=== PATIENT | female | born 2000 | race Caucasian/White ===

== ENCOUNTER 2023-10-12 18:55 | Emergency (ER) | payer OTHER, SELFPAY ==
[2023-10-12 19:07] VITALS: BP 128/92
[2023-10-12 19:41] LABS: COVID-19 Antigen Negative (Negative)
--- NOTE | 2023-10-12 22:26 | ED.GENMED ---
History of Present Illness
<MATT Jiang - Last Filed: 10/13/23 01:05>
General
Chief Complaint: Cold/Flu/URI Symptoms
Source: patient and family
Exam Limitations: none
Time Seen by Provider: 10/12/23 22:26
Travel History
Have you traveled to any high risk areas for coronavirus over the past 14 days?: No
Have you had any contact with someone who has COVID-19?: No
Do you have any symptoms of coronavirus? Fever > 100 degrees, chills, cough, shortness of breath, sore throat, loss of taste or smell, muscle aches, or headache?: No
History of Present Illness
History of Present Illness:
22 year old female with no significant past medical hx brought in by mother for cough that began 2 weeks ago. Pt states she initially had sore throat 2 weeks ago and after 3 days she developed a cough. She made a telehealth appointment and was
prescribed abx for possible strep throat which she finished 5 days ago. Pt's cough persisted and went to urgent care 1 week ago. She was told her symptoms were due to a viral etiology and recommended to take Robitussin. Today she presents with
persistent cough. However, she no longer has sore throat. States her coughs are severe and productive. She has mid sternal chest pain and tightness with SOB. States she gags and at times vomits due to the severity of her cough. Pt has been having on
and off fevers for the past 2 weeks, Tmax of 102. Her temperature at home today was 99. She has body aches and occasional night sweats. She also reports rhinorrhea, nasal congestion, and ear fullness. States she feels likes she is 'under water'. She
also reports loose stools and left sided abdominal pain. Pain is nonradiating. She also uses afrin and nasal spray.
No hematemesis, hematochezia, constipation, diarrhea, or urinary complaints. No sick contacts. No recent travel.
Past History
<MATT Jiang - Last Filed: 10/13/23 01:05>
Past History
ED Past Medical History: None
Review of Systems
<Aliza Mix [facility] - Last Filed: 10/13/23 01:05>
Review of Systems
All Other Systems: ROS reviewed and negative except as documented in HPI and ROS
Constitutional: Reports fever, fatigue and night sweats
EENT: Reports sore throat and runny nose
Respiratory: Reports cough and trouble breathing
Cardiac: Reports chest pain
ABD/GI: Reports vomiting, pain and other (loose stools)
: Reports no symptoms
Musculoskeletal: Reports muscle pain
Skin: Reports no symptoms
Neurological: Reports no symptoms
Phy Exam
<Aliza Mix [facility] - Last Filed: 10/13/23 01:05>
General Physical Exam
General Presentation: well appearing and no apparent distress
General age: appears stated age
General Skin: warm
General Habitus: normal
General Mental: alert
General Hydration: appears well hydrated
ENT Exam
ENT Exam: neck supple, lymphnodes (No lymphadenopathy.) and TM's abnormal (bilateral TM with serous fluid)
Additional ENT: Alicia boggy nasal turbinates. No tonsillar enlargements or exudates.
Cardiovascular Exam
Cardiovascular Exam: regular rate/rhythm, no edema and no murmur
Pulmonary Exam
Pulmonary Exam: lungs clear, no respiratory distress, no rales, no crackles, no rhonchi and no wheezing
Cough: hacking cough
Gastrointestinal Exam
Gastrointestinal Exam: soft, no organomegaly and non distended
Palpation: left upper quadrant: Mild tenderness and left lower quadrant: Mild tenderness
Neurological Exam
Neurological Exam: alert and oriented x3
Skin Exam
Skin Exam: normal color and warm/dry
Course
<Aliza Mix [facility] - Last Filed: 10/13/23 01:05>
Orders/Labs/Results
Orders:
Orders
10/12/23 19:08
Chest [CR Chest - 2 Views ] Urgent
Comment:
Reason For Exam: WILLIAM
10/12/23 19:12
COVID-19 Antigen Urgent
Source: Nasal Swab
Influenza A+B Rapid Molecular Urgent
STAN Source: Nasal Swab
Specimen Description:
10/12/23 23:26
Doxycycline [Vibramycin] 100 mg PO NOW STA
10/12/23 23:51
Doxycycline [Vibramycin] 100 mg PO NOW STA
Vital Signs
Initial and Last Documented VS:
Initial Vital Signs
Temp Pulse Resp BP Pulse Ox
99.5 F 99 22 128/92 96
10/12/23 19:07 10/12/23 19:07 10/12/23 19:07 10/12/23 19:07 10/12/23 19:07
Last Documented Vital Signs
Temp Pulse Resp BP Pulse Ox
99.2 F 88 19 122/82 98
10/13/23 00:28 10/13/23 00:28 10/13/23 00:28 10/13/23 00:28 10/13/23 00:28
<Darrell Hidalgo, DO - Last Filed: 10/12/23 23:52>
Orders/Labs/Results
Orders:
Orders
10/12/23 19:08
Chest [CR Chest - 2 Views ] Urgent
Comment:
Reason For Exam: WILLIAM
10/12/23 19:12
COVID-19 Antigen Urgent
Source: Nasal Swab
Influenza A+B Rapid Molecular Urgent
STAN Source: Nasal Swab
Specimen Description:
10/12/23 23:26
Doxycycline [Vibramycin] 100 mg PO NOW STA
10/12/23 23:51
Doxycycline [Vibramycin] 100 mg PO NOW STA
Vital Signs
Initial and Last Documented VS:
Initial Vital Signs
Temp Pulse Resp BP Pulse Ox
99.5 F 99 22 128/92 96
10/12/23 19:07 10/12/23 19:07 10/12/23 19:07 10/12/23 19:07 10/12/23 19:07
Last Documented Vital Signs
Temp Pulse Resp BP Pulse Ox
99.2 F 88 19 122/82 98
10/13/23 00:28 10/13/23 00:28 10/13/23 00:28 10/13/23 00:28 10/13/23 00:28
<MATT Jiang - Last Filed: 10/13/23 01:05>
*Critical Care Note
Total Time (30-74mins, 75-104mins- exclusive of procedures): Not Applicable
ED Attending Note
<MATT Jiang - Last Filed: 10/13/23 01:05>
-
Portions of this chart may have been created with voice recognition software.� Occasional wrong word or��sound alike� substitutions may have occurred due to the inherent limitations of voice recognition software.
<Darrell Hidalgo DO - Last Filed: 10/12/23 23:52>
ED Attending Note
Patient seen and examined by attending physician: Yes
I performed the substantive portion of visit, reviewed & personally made and approve the management plan that is documented in note by myself or SABRINA.: Yes
ED Attending Note:
Pleasant 22-year-old female presents tonight with a cough that began 2 weeks ago. Patient was on a course of amoxicillin which ended 3 days ago. Patient states that tonight her cough increased and she had a fever so she came into the emergency
department. While here she had an x-ray which showed retrocardiac pneumonia. Patient was seen in conjunction with the PA student. I have reviewed and agree with the history and treatment plan presented. On my independent physical exam, patient
is awake, alert, and oriented x3, minimal acute distress. Heart is regular rate and rhythm. Lungs have faint wheezing in all lung olsen. Moves all 4 extremities. Skin is warm and dry.
Plan given pneumonia we will start on doxycycline. 100 mg p.o. twice daily. She will get a note for work. She will return to the emergency department if her symptoms do not improve or they worsen for possible further imaging.
Discharge Plan
Departure
Patient Disposition: Home (Routine Discharge)
Date of Disposition: 10/12/23
Time of Disposition: 23:27
Patient with high blood pressure during this ER visit?: Yes
Condition: Good
Discharge Problem:
Pneumonia
Instructions: Fever, Adult (DC), Community-Acquired Pneumonia, Adult (DC), BLOOD PRESSURE
Prescriptions:
New
doxycycline hyclate 100 mg capsule
100 mg PO BID Qty: 20 0RF
Referrals:
Fred Phillips, [Family Provider] -
Stand Alone Forms: Return to Work
Activity Restrictions/Additional Instructions:
It was a pleasure meeting you and taking part in your care. We hope for your continued healing and wellness.
Please read discharge instructions in their entirety. However, they are for general education and may not describe your exact diagnosis at discharge. Information on your ER visit and medical conditions were discussed with you along with appropriate
follow up information...
If indicated, please take your medications as instructed and indicated on discharge paperwork.
Please schedule a follow up appointment as directed. Call to schedule an appointment
Please return to the emergency department with ANY change in, persisting, or worsening of symptoms. If any of your symptoms do not improve, or persist, or become more severe within 6-12 hours, please return to the emergency department for further
care.
Please return to the emergency department if you develop a headache, neck pain/stiffness, fever greater than 100.4F, chest pain, shortness of breath, persistent nausea, vomiting, slurred speech, difficulty walking, numbness/tingling, weakness, signs
of infection or any other symptoms that are worrisome to you.
If you have any questions or concerns please do not hesitate to call the Hospital at or E-mail me directly at [email or web address]
Interventions
Interventions:
*Risk Screen - Suicide Last Done: 10/12/23 19:04
*General Assessment Last Done: 10/12/23 19:04
*Neglect/Abuse Screening Last Done: 10/12/23 19:04
ED- Fall Risk Assessment Last Done: 10/12/23 22:45
*ED COVID-19 Vaccine History Last Done: 10/12/23 19:04
*Nursing Disposition Last Done: 10/13/23 00:29
ED- Pulmonary Assessment Last Done: 10/12/23 22:45
Discharge Date and Time
Discharge Date/Time: 10/13/23 00:31
Print Language: AMHARIC
[2023-10-13] MEDS: VIBRAMYCIN 100 MG PO (00:04)
[2023-10-13 00:28] VITALS: BP 122/82
== END 2023-10-13 00:31 | disposition home or self-care (01) ==
LOC: EMR 18:55
PROVIDERS: Emergency Medicine; EMERGENCY PHYSICIAN Student in an Organized Health Care Education/Training Program; FAMILY PHYSICIAN Family Medicine
DX: J18.9 Pneumonia, unspecified organism (principal)
CPT/HCPCS: 99283; 71046; 87502; 87811

== ENCOUNTER 2024-01-10 14:15 | Emergency (ER) | payer OTHER, SELFPAY ==
[2024-01-10 14:28] VITALS: BP 141/95
[2024-01-10 14:54] LABS: % Basophils 0.2 % (0-2); % Eosinophils 0.6 % (0-6); % Immature Granulocytes 0.4 % (0-0.5); % Lymphocytes 11.9 % (20.5-51.1); % Monocytes 4.8 % (1.7-9.3); % Neutrophils 82.1 % (42.2-75.2); Absolute Eosinophils 0.1 10^3/uL (0-0.7); Absolute Monocytes 0.4 10^3/uL (0.1-0.6); Absolute Neutrophils 6.6 10^3/uL (1.4-6.5); Hematocrit 35.8 % (37.0-47.0); Hemoglobin 12.6 g/dL (12.0-16.0); Mean Corp Hgb Conc. 35.2 g/dL (33.0-37.0); Mean Corpuscular Hgb 32.1 pg (27.0-31.0); Mean Corpuscular Volume 91.3 fL (81.0-99.0); Mean Platelet Volume 9.8 fL (7.4-10.4); Nucleated Red Blood Cells % 0 %; Platelet Count 220 10^3/uL (130-400); Red Blood Cell Count 3.92 10^6/uL (4.20-5.40); Red Cell Dist. Width 12.8 % (11.5-14.5); White Blood Cell Count 8.1 10^3/uL (4.8-10.8)
[2024-01-10 14:54] LABS: Urine Albumin Negative (Neg - Trace); Urine Bilirubin Negative (Negative); Urine Character Clear (Clear); Urine Color Straw; Urine Glucose Negative (Negative); Urine Ketone Negative (Negative); Urine Leukocyte Negative (Negative); Urine Nitrite Negative (Negative); Urine Occult Blood 3+ (Negative); Urine Specific Gravity 1.005 (<1.030); Urine Urobilinogen Negative (Neg - 1+); Urine pH 6.5 (5.0-9.0)
[2024-01-10 15:05] LABS: HCG, Serum Qualitative Screen Negative
[2024-01-10 15:08] LABS: Urine Squamous Cell >30 /LPF (Few)
[2024-01-10 15:10] LABS: ALT (SGPT) 32 U/L (0-35); AST (SGOT) 37 U/L (14-36); Albumin 4.6 g/dl (3.5-5.0); Alkaline Phosphatase 51 U/L (38-126); Blood Urea Nitrogen 20 mg/dl (7-17); Calcium 9.6 mg/dl (8.4-10.2); Carbon Dioxide 28 mmol/L (22-30); Chloride 97 mmol/L (98-107); Glucose 124 mg/dl (70-99); Potassium 4.1 mmol/L (3.5-5.1); Sodium 133 mmol/L (135-145); Total Bilirubin 0.3 mg/dl (0.2-1.3); Total Protein 7.2 g/dl (6.3-8.2); eGFR > 60.00
[2024-01-10 15:10] LABS: Urine Bacteria Few (Negative)
[2024-01-10] MEDS: NSS 1000 IV (15:45)
[2024-01-10] MEDS: ZOFRAN 4 MG IV (15:46)
[2024-01-10] MEDS: TORADOL 15 MG IV (15:46)
--- NOTE | 2024-01-10 15:54 | ED.GENMED ---
History of Present Illness
General
Chief Complaint: Abdominal Pain
Source: patient
Exam Limitations: none
Time Seen by Provider: 01/10/24 15:28
Nursing documentation reviewed up to this point in time: agreed with
History of Present Illness
History of Present Illness:
23-year-old female with history kidney stones presenting to the emergency department for evaluation of acute onset right flank pain around 8 AM today. 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
morning and had an acute onset pain in her right lower back. She states pain has been relatively constant with waves of more severe pain. She initially thought that she may have pulled a muscle although she does not know of any inciting trauma or
event. Symptoms have persisted and now the pain seems to be radiating from her right lower back around to her right lower abdomen. Patient endorses nausea but denies any vomiting. Patient denies any known fever or chills. Patient works some
urinary frequency. No hematuria.
Patient's last menstrual period ended last week.
Patient does have a history of kidney stones in the past that she was able to pass on her own. She has seen a casting machine operator helper in the past.
Past History
Past History
ED Past Medical History: None
Review of Systems
Review of Systems
Allergies reviewed?: Yes
All Other Systems: ROS reviewed and negative except as documented in HPI and ROS
Phy Exam
Physical Exam
Physical Exam:
Vitals: Patient's vital signs are stable. Afebrile
General: Patient is well appearing, no acute distress. Nontoxic-appearing
Skin: Warm and dry, no rashes or lesions
Head: Normocephalic, atraumatic
Eyes: Sclera nonicteric. EOMs intact. No nystagmus.
Throat: Protecting airway
Neck: Normal ROM, no cervical spine tenderness, no meningismus
Cardiac: Regular rate and rhythm, no murmurs.
Pulm: Normal respiratory effort, no wheezes, rales, rhonchi heard on exam.
Abdomen: Abdomen soft. Mild abdominal tenderness in right mid abdomen without rebound tenderness or guarding. No tenderness to McBurney's point. No CVA tenderness.
Extremities: No evidence of cyanosis or edema. Great distal pulses
Neuro: AAOx3. CN II-XII intact. No focal neurologic deficits.
Psychiatric: Normal affect.
Course
Orders/Labs/Results
Orders:
Orders
01/10/24 14:32
Test Result ONCE
01/10/24 14:40
Complete Blood Count/With Diff Urgent
Comprehensive Metabolic Panel Urgent
HCG, Serum Qualitative Screen Urgent
01/10/24 14:41
Urinalysis Reflex To Culture Urgent
Date Specimen was Collected: 01/10/24
Time Specimen was Collected: 14:32
Urine Microscopic Reflex Cult Urgent
01/10/24 15:41
Ketorolac [Toradol] 15 mg .ROUTE .STK-MED ONE
Ondansetron Injectable [Zofran] 4 mg .ROUTE .STK-MED ONE
01/10/24 15:43
Ketorolac [Toradol] 15 mg IV NOW STA
01/10/24 15:44
Ondansetron Injectable [Zofran] 4 mg IV NOW STA
01/10/24 15:45
0.9% Sodium Chloride 1000 ml [Nss] 1,000 ml IV BOLUS
01/10/24 15:50
CT Abd/pel Without Iv Or Oral Urgent
Comment: hx kidney stones +hematuria
Reason For Exam: Right flank pain
01/10/24 16:59
Morphine Sulfate 2 mg IV NOW STA
01/10/24 18:48
Oxycodone [Roxicodone] 5 mg PO NOW STA
Tamsulosin [Flomax] 0.4 mg PO NOW STA
Abnormal Lab Results
01/10/24 01/10/24
14:40 14:41
RBC 3.92 L 10^6/uL
(4.20-5.40)
Hct 35.8 L %
(37.0-47.0)
MCH 32.1 H pg
(27.0-31.0)
Absolute Neuts (auto) 6.6 H 10^3/uL
(1.4-6.5)
Absolute Lymphs (auto) 1.0 L 10^3/uL
(1.2-3.4)
Neutrophils % 82.1 H %
(42.2-75.2)
Lymphocytes % 11.9 L %
(20.5-51.1)
Sodium 133 L mmol/L
(135-145)
Chloride 97 L mmol/L
(98-107)
BUN 20 H mg/dl
(7-17)
Glucose 124 H mg/dl
(70-99)
AST 37 H U/L
(14-36)
Ur Occult Blood Reflex 3+ A
(Negative)
Urine RBC 3-6 A /HPF
(0-2)
Urine Bacteria (Reflex) Few A
(Negative)
01/10/24 14:40
01/10/24 14:40
Vital Signs
Initial and Last Documented VS:
Initial Vital Signs
Temp Pulse Resp BP Pulse Ox
99.0 F 93 16 141/95 98
01/10/24 14:28 01/10/24 14:28 01/10/24 14:28 01/10/24 14:28 01/10/24 14:28
Last Documented Vital Signs
Temp Pulse Resp BP Pulse Ox
99.0 F 89 18 132/96 99
01/10/24 14:28 01/10/24 18:42 01/10/24 18:42 01/10/24 18:42 01/10/24 18:42
MDM/Problems Addressed
Differential Diagnosis Includes:
Not limited to: Kidney stone, UTI, pyelonephritis, constipation, appendicitis, muscular strain
MDM/Problems Addressed:
23-year-old female presenting with acute onset right flank pain around 8 AM this morning. Associated with nausea and urinary hesitancy. Patient does have a history of kidney stones in the past. No abdominal pain, vomiting, anorexia. Pain worse
with movement. Mildly hypertensive otherwise vital signs stable on arrival. Patient is well-appearing, in no apparent distress. Is nontoxic-appearing. Abdomen is soft throughout with mild tenderness in right mid abdomen without rebound
tenderness or guarding. No tenderness of McBurney's point. Patient has no CVA tenderness bilaterally. No rashes or ecchymoses of abdomen or right flank. Patient is perfusing well. Heart regular rate and rhythm. Lungs clear bilaterally. Labs
were initiated in triage without any clinically significant abnormalities. No leukocytosis. Creatinine normal at 0.8. Urine does show red blood cells, although noninfected. Patient will be given fluids, Zosyn, Toradol. Will obtain noncontrast
CT abdomen/pelvis to evaluate for possible kidney stones.
Patient had some mild improvement following Toradol although pain did return. Did give patient [address] pending.
CT scan shows a 5 mm stone at right UVJ with moderate right hydroureter. Patient otherwise well-appearing and nontoxic. No indication of associated urinary infection. No evidence of renal insufficiency. Patient stable for discharge with urology
follow-up, close return precautions. Will send patient with Flomax, pain management, Zofran. Patient will be given urine strainer. Patient and patient's mom comfortable with plan. All questions answered. Case discussed with attending physician
Chronic conditions affecting care:
History of kidney stones
Acute Exacerbation and/or Progression of Chronic Illness:
Kidney stone
*Radiology
Radiology exam reviewed: preliminary read by ED provider and radiology read reviewed (5 mm UVJ stone)
*Pulse Oximetry
Patient hypoxic: no
*EKG
Interpreted by ED Provider?: NA
*Change House Attendant Interpretation
Rate: Change House Attendant- N/A
*Critical Care Note
Total Time (30-74mins, 75-104mins- exclusive of procedures): Not Applicable
ED Attending Note
-
Portions of this chart may have been created with voice recognition software.� Occasional wrong word or��sound alike� substitutions may have occurred due to the inherent limitations of voice recognition software.
Discharge Plan
Departure
Patient Disposition: Home (Routine Discharge)
Date of Disposition: 01/10/24
Time of Disposition: 18:47
Patient with high blood pressure during this ER visit?: Yes
Condition: Good
Covid-19: Not Applicable
Discharge Problem:
Calculus of ureterovesical junction (UVJ)
Instructions: Kidney Stones (DC), BLOOD PRESSURE
Prescriptions:
New
tamsulosin [Flomax] 0.4 mg capsule
0.4 mg PO DAILY 7 Days Qty: 7 0RF
ondansetron 4 mg tablet,disintegrating
4 mg PO Q8H PRN (Reason: nausea and vomiting) Qty: 10 0RF
oxycodone 5 mg tablet
5 mg PO Q6H PRN (Reason: Pain) Qty: 7 0RF
No Action
doxycycline hyclate 100 mg capsule
100 mg PO BID Qty: 20 0RF
Referrals:
Kevin Moran MD [Active] - Next open appointment
Fred Phillips DO [Family Provider] -
Stand Alone Forms: Return to Work
Activity Restrictions/Additional Instructions:
RETURN TO THE EMERGENCY DEPARTMENT WITH FEVERS, CHILLS, SEVERE ABDOMINAL PAIN/BACK PAIN, INTRACTABLE NAUSEA/VOMITING, WORSENING IN CURRENT SYMPTOMS, OR ANY OTHER CONCERNS
-You should take 600 mg of ibuprofen every 6 hours for pain. For severe pain you can take oxycodone as sent to your pharmacy. This will cause drowsiness and you should not take prior to driving. In addition a prescription for both Zofran and
Flomax 7 sent to your pharmacy.
-It is very important to stay well-hydrated. You should strain your urine.
-Follow-up with urology for further evaluation/management. Contact information has been provided for you above.
Monitor your symptoms closely and return to the emergency department any acute worsening/new symptoms or any signs of worsening infection.
Interventions
Interventions:
*Risk Screen - Suicide Last Done: 01/10/24 15:54
*General Assessment Last Done: 01/10/24 15:54
*Neglect/Abuse Screening Last Done: 01/10/24 15:54
TC-Mvclqy-Weemqnntwi Assessment Last Done: 01/10/24 15:54
Discharge Date and Time
Print Language: CROATIAN
[2024-01-10] MEDS: MORPHINE SULFATE 2 MG IV (17:17)
[2024-01-10 18:42] VITALS: BP 132/96
[2024-01-10] MEDS: ROXICODONE 5 MG PO (18:59)
[2024-01-10] MEDS: FLOMAX 0.4 MG PO (18:59)
[2024-01-10 19:39] VITALS: BP 132/96
== END 2024-01-10 19:40 | disposition home or self-care (01) ==
LOC: EMR 14:15
PROVIDERS: Emergency Medicine; EMERGENCY PHYSICIAN Student in an Organized Health Care Education/Training Program; FAMILY PHYSICIAN Family Medicine
DX: N13.2 Hydronephrosis with renal and ureteral calculous obstruction (principal); R11.0 Nausea; R39.11 Hesitancy of micturition; R35.0 Frequency of micturition; R03.0 Elevated blood-pressure reading, without diagnosis of hypertension; Z87.442 Personal history of urinary calculi
CPT/HCPCS: 99284; 96374; 96375 ×2; 96361; 74176; 80053; 81003; 81015; 84703; 85025